=== PATIENT | female | born 2000 | race Caucasian/White ===

== ENCOUNTER 2021-08-04 15:27 | Outpatient (CLI) | payer OTHER | END 2021-08-04 19:06 | disposition home or self-care (01) | LOC: NST 15:27 | PROVIDERS: ATTEND Obstetrics & Gynecology Maternal & Fetal Medicine | DX: O16.3 Unspecified maternal hypertension, third trimester (principal) ==

== ENCOUNTER 2021-08-19 13:55 | Outpatient (CLI) | payer OTHER | END 2021-08-19 14:55 | disposition home or self-care (01) | LOC: NST 13:55 | PROVIDERS: ATTEND Obstetrics & Gynecology | DX: Z34.83 Encounter for supervision of other normal pregnancy, third trimester (principal) ==

== ENCOUNTER 2021-09-01 11:19 | Inpatient (IN) | payer OTHER ==
[~2021-09-01] VITALS: Ht 157.5 cm; Wt 2.7 kg
[2021-09-10] MEDS ORDERED: ATABEX OB TABL1 EACH PO (06:22)
[2021-09-10] MEDS ORDERED: ATABEX DHA 200200 MG PO (06:22)
[2021-09-10] MEDS ORDERED: LABETALOL HCL200 MG PO (06:23)
[2021-09-10] MEDS ORDERED: NORVASC2.5 MG (08:28)
== END 2021-09-12 11:11 | disposition home or self-care (01) | DRG 788 ==
LOC: LDR 09-03 13:00 → OB/GYN 09-10 05:58
PROVIDERS: ADMIT Obstetrics & Gynecology Maternal & Fetal Medicine; ATTEND Obstetrics & Gynecology
PROC: 4A1HXCZ Monitoring of Products of Conception, Cardiac Rate, External Approach (ICD-10-PCS; 2021-09-10)
PROC: 10D00Z1 Extraction of Products of Conception, Low, Open Approach (ICD-10-PCS; principal; 2021-09-10 17:00)
DX: O34.211 Maternal care for low transverse scar from previous cesarean delivery (principal); Z20.822 Contact with and (suspected) exposure to COVID-19; Z3A.38 38 weeks gestation of pregnancy; Z37.0 Single live birth

== ENCOUNTER 2021-09-08 12:40 | Outpatient (CLI) | payer OTHER | END 2021-09-08 13:20 | disposition home or self-care (01) | LOC: NST 12:40 | PROVIDERS: ATTEND Obstetrics & Gynecology Maternal & Fetal Medicine | DX: Z34.83 Encounter for supervision of other normal pregnancy, third trimester (principal) ==